=== PATIENT | female | born 1980 | race Hispanic/Latino ===

== ENCOUNTER 2020-03-27 20:05 | Inpatient (IN) | payer MEDICARE, OTHER ==
[~2020-03-27] VITALS: Ht 165.1 cm; Wt 135.2 kg
[2020-03-27 21:51] LABS: BASOPHILS % (AUTO) 0.1 % (0.0-5.0); LYMPHOCYTES % (AUTO) 16.2 % (21.0-51.0); MEAN CORPUSCULAR HEMOGLOBIN 28.7 pg (27.0-33.0); MEAN CORPUSCULAR HGB CONC 32.5 g/dL (32.0-36.0); MEAN CORPUSCULAR VOLUME 88.4 fL (79-99); MONOCYTES % (AUTO) 7.6 % (3.0-13.0); NEUTROPHILS % (AUTO) 75.3 % (40.0-77.0); PLATELET COUNT (AUTO) 364 K/uL (130-400); RED BLOOD CELL COUNT(AUTO) 4.98 MIL/uL (4.00-5.50); RED CELL DISTRIBUTION WIDTH 13.3 % (11.0-15.5); WHITE BLOOD COUNT (AUTO) 8.9 K/uL (4.8-10.8)
[2020-03-27 22:01] LABS: CREATININE 0.7 mg/dL (0.5-1.5); POTASSIUM 3.7 mmol/L (3.5-5.1)
[2020-03-27 22:06] LABS: ALBUMIN 3.1 g/dL (3.5-5.0); BILIRUBIN,TOTAL 0.4 mg/dL (0.2-1.0); TOTAL PROTEIN, SERUM 8.5 g/dL (6.0-8.3)
[2020-03-27] MEDS ORDERED: SODIUM CHLORIDE 0.9% 1000ML 1,000 ML IV ONE (22:21)
[2020-03-27] MEDS ORDERED: ACETAMINOPHEN 325 MG TAB ONE (22:51)
[2020-03-27] MEDS ORDERED: CEFTRIAXONE SODIUM 1 GM ONE (23:10)
[2020-03-27] MEDS ORDERED: AZITHROMYCIN 500MG+NS 250ML 250 ML IV ONE (23:11)
[2020-03-27] MEDS ORDERED: ACETAMINOPHEN 325 MG TAB PO PRN (23:15)
[2020-03-27] MEDS ORDERED: ONDANSETRON HCL 4 MG/2 ML VIAL IV PRN (23:15)
[2020-03-27] MEDS ORDERED: ALBUTEROL INHALER 90MCG/INH IH PRN (23:15)
[2020-03-27] MEDS ORDERED: ALBUTEROL INHALER 90MCG/INH IH ONE (23:26)
[2020-03-27] MEDS ORDERED: ONDANSETRON HCL 4 MG/2 ML VIAL ONE (23:43)
[2020-03-27] MEDS ORDERED: IOHEXOL 350 MG/ML 100ML INFUS..BTL IV ONE (23:49)
[2020-03-28] MEDS ORDERED: DOXYCYCLINE 100MG+NS 250ML 250 ML IV ONE (00:35)
[2020-03-28 05:19] LABS: BASOPHILS % (AUTO) 0.1 % (0.0-5.0); EOSINOPHILS % (AUTO) 0.1 % (0.0-8.0); HEMATOCRIT 38.8 % (36-48); LYMPHOCYTES % (AUTO) 27.5 % (21.0-51.0); MEAN CORPUSCULAR HEMOGLOBIN 28.6 pg (27.0-33.0); MEAN CORPUSCULAR HGB CONC 32.7 g/dL (32.0-36.0); MEAN CORPUSCULAR VOLUME 87.4 fL (79-99); MONOCYTES % (AUTO) 10.2 % (3.0-13.0); NEUTROPHILS % (AUTO) 61.1 % (40.0-77.0); PLATELET COUNT (AUTO) 304 K/uL (130-400); RED BLOOD CELL COUNT(AUTO) 4.44 MIL/uL (4.00-5.50); RED CELL DISTRIBUTION WIDTH 13.2 % (11.0-15.5)
[2020-03-28 05:27] LABS: ALANINE AMINOTRANSFERASE 27 U/L (12-78); ALBUMIN 2.5 g/dL (3.5-5.0); ASPARTATE AMINOTRANSFERASE 25 U/L (10-37); BILIRUBIN,TOTAL 0.4 mg/dL (0.2-1.0); CARBON DIOXIDE 24 mmol/L (21-32); CHLORIDE 106 mmol/L (101-111); CREATININE 0.6 mg/dL (0.5-1.5); GLOMERULAR FILTR. RATE CALC 120 mL/min (>60); GLUCOSE,RANDOM 111 mg/dL (70-105); LACTATE DEHYDROGENASE 261 U/L (81-234); POTASSIUM 3.2 mmol/L (3.5-5.1); SODIUM SERUM 140 mmol/L (136-145); TOTAL PROTEIN, SERUM 7.2 g/dL (6.0-8.3); UREA NITROGEN, BLOOD 10 mg/dL (7-18)
[2020-03-28] MEDS: METHYLPREDNISOLONE SOD SUCC 40MG/ML 1ML IVP SCH ×3 (06:00→22:00)
[2020-03-28] MEDS ORDERED: ERGOCALCIFEROL (VITAMIN D2) 50,000 UNIT CAPSULE PO ONE (06:00)
[2020-03-28] MEDS ORDERED: ACETYLCYSTEINE 600 MG CAPSULE ONE ×2 (08:17→20:44)
[2020-03-28] MEDS ORDERED: ENOXAPARIN SODIUM 40 MG/0.4 ML SYRINGE SQ ONE (08:17)
[2020-03-28] MEDS ORDERED: ZINC SULFATE 220 CAPSULE ONE (08:17)
[2020-03-28] MEDS ORDERED: ASCORBIC ACID 500 MG TAB ONE (08:17)
[2020-03-28] MEDS ORDERED: POTASSIUM CHLORIDE 20MEQ/100ML 100 ML IV PRN (08:30)
[2020-03-28] MEDS: ASCORBIC ACID 500 MG TAB PO SCH (09:00)
[2020-03-28] MEDS: ACETYLCYSTEINE 600 MG CAPSULE PO SCH ×2 (09:00→21:00)
[2020-03-28] MEDS: ENOXAPARIN SODIUM 40 MG/0.4 ML SYRINGE SQ SCH (09:00)
[2020-03-28] MEDS: ZINC SULFATE 220 CAPSULE PO SCH (09:00)
[2020-03-28] MEDS ORDERED: PHARMACY COMMUNICATION MISC SCH (09:15)
[2020-03-28] MEDS ORDERED: DOXYCYCLINE 100MG+NS 250ML 250 ML IV SCH (12:00)
[2020-03-28] MEDS ORDERED: METHYLPREDNISOLONE SOD SUCC 40MG/ML 1ML ONE ×2 (13:52→20:44)
--- NOTE | 2020-03-28 17:10 | NUR ---
INITIAL SW spoke with patient's aunt, Zee Koehler. Patient live with 12 year old daughter. She has no home services or DME. Patient is able to complete ADL's and drives. PCP is Dr. Chava Carbone. Pharmacy is [facility] in [place]. DCP is home. Addendum: 03/28/20 at 1712 by VIANCA HOLLY SS Amended: Links added.
[2020-03-28] MEDS ORDERED: AZITHROMYCIN 500MG+NS 250ML 250 ML IV ONE (20:44)
[2020-03-28] MEDS: AZITHROMYCIN 500MG+NS 250ML 250 ML IV SCH (23:00)
[2020-03-29] MEDS ORDERED: ACETAMINOPHEN 325 MG TAB ONE (04:00)
[2020-03-29] MEDS ORDERED: METHYLPREDNISOLONE SOD SUCC 40MG/ML 1ML ONE ×2 (05:55→08:26)
[2020-03-29] MEDS: METHYLPREDNISOLONE SOD SUCC 40MG/ML 1ML IVP SCH ×3 (06:00→21:24)
[2020-03-29 08:24] LABS: ALANINE AMINOTRANSFERASE 31 U/L (12-78); ALBUMIN 2.8 g/dL (3.5-5.0); ASPARTATE AMINOTRANSFERASE 26 U/L (10-37); BILIRUBIN,TOTAL 0.3 mg/dL (0.2-1.0); CARBON DIOXIDE 26 mmol/L (21-32); CHLORIDE 103 mmol/L (101-111); CREATININE 0.8 mg/dL (0.5-1.5); GLOMERULAR FILTR. RATE CALC 86 mL/min (>60); GLUCOSE,RANDOM 191 mg/dL (70-105); LACTATE DEHYDROGENASE 291 U/L (81-234); POTASSIUM 3.9 mmol/L (3.5-5.1); SODIUM SERUM 139 mmol/L (136-145); TOTAL PROTEIN, SERUM 8.3 g/dL (6.0-8.3); UREA NITROGEN, BLOOD 10 mg/dL (7-18)
[2020-03-29] MEDS ORDERED: ASCORBIC ACID 500 MG TAB ONE (08:27)
[2020-03-29] MEDS ORDERED: ACETYLCYSTEINE 600 MG CAPSULE ONE (08:27)
[2020-03-29] MEDS ORDERED: ENOXAPARIN SODIUM 30 MG/0.3 ML SQ ONE (08:27)
[2020-03-29] MEDS ORDERED: ZINC SULFATE 220 CAPSULE ONE (08:27)
[2020-03-29] MEDS ORDERED: FAMOTIDINE/PF 20 MG/2 ML VIAL IV ONE (08:28)
[2020-03-29] MEDS: ZINC SULFATE 220 CAPSULE PO SCH (09:00)
[2020-03-29] MEDS: ACETYLCYSTEINE 600 MG CAPSULE PO SCH ×2 (09:00→21:24)
[2020-03-29] MEDS: ENOXAPARIN SODIUM 40 MG/0.4 ML SYRINGE SQ SCH (09:00)
[2020-03-29] MEDS: ASCORBIC ACID 500 MG TAB PO SCH (09:00)
[2020-03-29] MEDS: PHARMACY COMMUNICATION MISC SCH ×2 (11:00→15:55)
--- NOTE | 2020-03-29 15:41 | NUR ---
1530 Arrival Patient arrived from ER via w/c in stable condition, requesting shower. Tech providing items for request.
[2020-03-29 16:00] VITALS: BP 118/74
[2020-03-29] MEDS: ACETAMINOPHEN 325 MG TAB PO PRN ×2 (16:40→22:47)
[2020-03-29 20:37] VITALS: BP 145/79
[2020-03-29] MEDS: AZITHROMYCIN 500MG+NS 250ML 250 ML IV SCH (22:46)
[2020-03-29 22:57] LABS: BASOPHILS % (AUTO) 0.2 % (0.0-5.0); HEMATOCRIT 40.2 % (36-48); LYMPHOCYTES % (AUTO) 8.8 % (21.0-51.0); MEAN CORPUSCULAR HEMOGLOBIN 28.7 pg (27.0-33.0); MEAN CORPUSCULAR HGB CONC 33.1 g/dL (32.0-36.0); MEAN CORPUSCULAR VOLUME 86.8 fL (79-99); MONOCYTES % (AUTO) 6.9 % (3.0-13.0); PLATELET COUNT (AUTO) 440 K/uL (130-400); RED BLOOD CELL COUNT(AUTO) 4.63 MIL/uL (4.00-5.50); RED CELL DISTRIBUTION WIDTH 12.8 % (11.0-15.5); WHITE BLOOD COUNT (AUTO) 11.1 K/uL (4.8-10.8)
[2020-03-29 23:16] VITALS: BP 149/72
[2020-03-30] MEDS: PHARMACY COMMUNICATION MISC SCH ×3 (03:00→18:07)
[2020-03-30 03:50] VITALS: BP 108/59
[2020-03-30 04:58] LABS: BASOPHILS % (AUTO) 0.1 % (0.0-5.0); HEMATOCRIT 38.6 % (36-48); MEAN CORPUSCULAR HEMOGLOBIN 28.7 pg (27.0-33.0); MEAN CORPUSCULAR HGB CONC 33.2 g/dL (32.0-36.0); MEAN CORPUSCULAR VOLUME 86.5 fL (79-99); MONOCYTES % (AUTO) 4.1 % (3.0-13.0); NEUTROPHILS % (AUTO) 86.7 % (40.0-77.0); PLATELET COUNT (AUTO) 445 K/uL (130-400); RED BLOOD CELL COUNT(AUTO) 4.46 MIL/uL (4.00-5.50); RED CELL DISTRIBUTION WIDTH 12.8 % (11.0-15.5); WHITE BLOOD COUNT (AUTO) 12.2 K/uL (4.8-10.8)
[2020-03-30 05:17] LABS: ALANINE AMINOTRANSFERASE 28 U/L (12-78); ALBUMIN 2.6 g/dL (3.5-5.0); ASPARTATE AMINOTRANSFERASE 22 U/L (10-37); BILIRUBIN,TOTAL 0.3 mg/dL (0.2-1.0); CARBON DIOXIDE 25 mmol/L (21-32); CHLORIDE 106 mmol/L (101-111); CREATININE 0.6 mg/dL (0.5-1.5); GLOMERULAR FILTR. RATE CALC 120 mL/min (>60); GLUCOSE,RANDOM 178 mg/dL (70-105); LACTATE DEHYDROGENASE 235 U/L (81-234); POTASSIUM 4.1 mmol/L (3.5-5.1); SODIUM SERUM 139 mmol/L (136-145); TOTAL PROTEIN, SERUM 7.3 g/dL (6.0-8.3); UREA NITROGEN, BLOOD 11 mg/dL (7-18)
[2020-03-30] MEDS: METHYLPREDNISOLONE SOD SUCC 40MG/ML 1ML IVP SCH ×3 (06:20→20:33)
--- NOTE | 2020-03-30 07:17 | NUR ---
Charge nurse notified of communication order requesting patient receive 2 units.
[2020-03-30 08:30] VITALS: BP 127/65
[2020-03-30] MEDS: ACETYLCYSTEINE 600 MG CAPSULE PO SCH ×2 (08:33→21:00)
[2020-03-30] MEDS: ENOXAPARIN SODIUM 40 MG/0.4 ML SYRINGE SQ SCH (08:34)
[2020-03-30] MEDS: ASCORBIC ACID 500 MG TAB PO SCH (08:34)
[2020-03-30] MEDS: ZINC SULFATE 220 CAPSULE PO SCH (08:34)
[2020-03-30 12:03] VITALS: BP 141/86
[2020-03-30] MEDS ORDERED: DEXT1DRO12 OP (14:38)
[2020-03-30] MEDS ORDERED: PRED5DRO25 OP (14:39)
[2020-03-30 16:34] VITALS: BP 142/84
[2020-03-30 20:55] VITALS: BP 141/72
[2020-03-30] MEDS: AZITHROMYCIN 500MG+NS 250ML 250 ML IV SCH (22:09)
[2020-03-30 23:51] VITALS: BP 132/85
[2020-03-31] MEDS: PHARMACY COMMUNICATION MISC SCH ×4 (03:00→19:48)
[2020-03-31 03:50] VITALS: BP 134/71
[2020-03-31] MEDS: METHYLPREDNISOLONE SOD SUCC 40MG/ML 1ML IVP SCH ×3 (05:28→22:08)
[2020-03-31 05:46] LABS: BASOPHILS % (AUTO) 0.1 % (0.0-5.0); LYMPHOCYTES % (AUTO) 15.4 % (21.0-51.0); MEAN CORPUSCULAR HEMOGLOBIN 28.6 pg (27.0-33.0); MEAN CORPUSCULAR HGB CONC 33.1 g/dL (32.0-36.0); MEAN CORPUSCULAR VOLUME 86.5 fL (79-99); MONOCYTES % (AUTO) 8.3 % (3.0-13.0); NEUTROPHILS % (AUTO) 73.6 % (40.0-77.0); PLATELET COUNT (AUTO) 498 K/uL (130-400); RED BLOOD CELL COUNT(AUTO) 4.51 MIL/uL (4.00-5.50); RED CELL DISTRIBUTION WIDTH 12.8 % (11.0-15.5); WHITE BLOOD COUNT (AUTO) 11.7 K/uL (4.8-10.8)
[2020-03-31 06:17] LABS: ALANINE AMINOTRANSFERASE 25 U/L (12-78); ALBUMIN 2.7 g/dL (3.5-5.0); ASPARTATE AMINOTRANSFERASE 19 U/L (10-37); BILIRUBIN,TOTAL 0.2 mg/dL (0.2-1.0); CARBON DIOXIDE 27 mmol/L (21-32); CHLORIDE 106 mmol/L (101-111); CREATININE 0.7 mg/dL (0.5-1.5); GLOMERULAR FILTR. RATE CALC 100 mL/min (>60); GLUCOSE,RANDOM 158 mg/dL (70-105); LACTATE DEHYDROGENASE 231 U/L (81-234); SODIUM SERUM 139 mmol/L (136-145); TOTAL PROTEIN, SERUM 7.2 g/dL (6.0-8.3); UREA NITROGEN, BLOOD 12 mg/dL (7-18)
[2020-03-31 08:34] VITALS: BP 144/76
[2020-03-31] MEDS ORDERED: SODIUM CHLORIDE 0.9% 250 ML IV ONE (09:24)
[2020-03-31] MEDS: ASCORBIC ACID 500 MG TAB PO SCH (11:01)
[2020-03-31] MEDS: ZINC SULFATE 220 CAPSULE PO SCH (11:01)
[2020-03-31] MEDS: ENOXAPARIN SODIUM 40 MG/0.4 ML SYRINGE SQ SCH (11:02)
[2020-03-31] MEDS: ACETYLCYSTEINE 20% 200MG/ML 4ML VIAL PO SCH ×2 (11:03→22:08)
[2020-03-31 12:03] VITALS: BP 138/88
[2020-03-31 16:47] VITALS: BP 132/91
[2020-03-31 19:00] VITALS: BP 139/81
[2020-03-31] MEDS: AZITHROMYCIN 500MG+NS 250ML 250 ML IV SCH (22:08)
[2020-04-01 01:14] VITALS: BP 135/80
[2020-04-01 03:53] VITALS: BP 127/75
[2020-04-01 05:16] LABS: BASOPHILS % (AUTO) 0.2 % (0.0-5.0); HEMATOCRIT 42.2 % (36-48); MEAN CORPUSCULAR HEMOGLOBIN 29.3 pg (27.0-33.0); MEAN CORPUSCULAR HGB CONC 33.6 g/dL (32.0-36.0); MONOCYTES % (AUTO) 5.1 % (3.0-13.0); NEUTROPHILS % (AUTO) 78.2 % (40.0-77.0); PLATELET COUNT (AUTO) 531 K/uL (130-400); RED BLOOD CELL COUNT(AUTO) 4.85 MIL/uL (4.00-5.50); RED CELL DISTRIBUTION WIDTH 12.6 % (11.0-15.5); WHITE BLOOD COUNT (AUTO) 10.3 K/uL (4.8-10.8)
[2020-04-01] MEDS: METHYLPREDNISOLONE SOD SUCC 40MG/ML 1ML IVP SCH ×2 (05:19→12:53)
[2020-04-01 05:45] LABS: ALANINE AMINOTRANSFERASE 33 U/L (12-78); ALBUMIN 2.9 g/dL (3.5-5.0); ASPARTATE AMINOTRANSFERASE 23 U/L (10-37); BILIRUBIN,TOTAL 0.3 mg/dL (0.2-1.0); CARBON DIOXIDE 26 mmol/L (21-32); CHLORIDE 104 mmol/L (101-111); CREATININE 0.7 mg/dL (0.5-1.5); GLOMERULAR FILTR. RATE CALC 100 mL/min (>60); GLUCOSE,RANDOM 205 mg/dL (70-105); LACTATE DEHYDROGENASE 240 U/L (81-234); POTASSIUM 4.3 mmol/L (3.5-5.1); SODIUM SERUM 140 mmol/L (136-145); TOTAL PROTEIN, SERUM 7.8 g/dL (6.0-8.3); UREA NITROGEN, BLOOD 12 mg/dL (7-18)
[2020-04-01] MEDS: ZINC SULFATE 220 CAPSULE PO SCH (08:35)
[2020-04-01] MEDS: ASCORBIC ACID 500 MG TAB PO SCH (08:35)
[2020-04-01] MEDS: ACETYLCYSTEINE 20% 200MG/ML 4ML VIAL PO SCH (08:36)
[2020-04-01] MEDS: ENOXAPARIN SODIUM 40 MG/0.4 ML SYRINGE SQ SCH (08:36)
[2020-04-01 08:42] VITALS: BP 134/81
[2020-04-01 12:27] VITALS: BP 136/85
[2020-04-01] MEDS: PHARMACY COMMUNICATION MISC SCH (12:51)
[2020-04-01] MEDS ORDERED: ASPI-1012 PO (16:36)
[2020-04-01] MEDS ORDERED: METF-444 PO (16:37)
== END 2020-04-01 13:26 | disposition home or self-care (01) | DRG 177 ==
LOC: EDH 20:05 → EDSEX 20:05 → EDHIP 23:03 → OBSVTOIN 23:03 → 4BH 03-29 15:43
PROVIDERS: ADMIT Internal Medicine; ATTEND Internal Medicine
PROC: XW13325 Transfusion of Convalescent Plasma (Nonautologous) into Peripheral Vein, Percutaneous Approach, New Technology Group 5 (ICD-10-PCS; principal; 2020-03-31)
DX: U07.1 COVID-19 (principal); J96.01 Acute respiratory failure with hypoxia; J12.89 Other viral pneumonia; Z68.42 Body mass index [BMI] 45.0-49.9, adult; I10 Essential (primary) hypertension; E66.01 Morbid (severe) obesity due to excess calories; Z98.891 History of uterine scar from previous surgery
CPT/HCPCS: 36415; 71045; 71275; 80053; 81025; 82728; 83615; 84145; 84484; 85025; 85378; 86140; 86850; 86900; 86901; 86927; 87426; 93005; G0378; J0456; J0696; J1650; J2405; J2920; J3490; J7030; J7050; J7608; Q9967